=== PATIENT | male | born 1990 | race American Indian/Alaskan Native ===

== ENCOUNTER 2019-01-07 18:10 | Observation (INO) | payer OTHER ==
[2019-01-07] MEDS ORDERED: Sodium Chloride 0.9% 1,000 ML IV STA ×3 (18:26→22:28)
[2019-01-07 18:56] LABS: URINE BACTERIA RARE (<OCC)
--- NOTE | 2019-01-07 18:58 | ED PDOC ---
History of Present Illness History of Present Illness: 28 year old male with no significant medical history presents to the ED for evaluation of intermittent fever, sore throat, swollen glands, weakness and chills since September. Patient reports that he has not used the bathroom in 5 days. In August, he had a sore throat and occasionally produced blood in his mucus. Patient states that the last time he had blood drawn was 2016 and at that time all tests, including for HIV, were negative. Patient is originally from the [facility] and now works as an route contractor. Denies sick contacts and recent travel out of the country. PMD: none provided HPI: Influenza Time Seen by Provider: 01/07/19 18:25 Chief Complaint: ENT Problem Chief Complaint (Provider): ENT Problem History Per: Patient Exam Limitations: no limitations Have you had recent travel within the past 21 days to any of: No Onset/Duration Of Symptoms: Intermittent Episodes (since September) Symptoms include: fever, sore throat, cough, other (weakness and chills) Sick Contacts (Context): None Past Medical History Reviewed: Historical Data, Nursing Documentation, Vital Signs Vital Signs: Last Vital Signs Temp 102.7 F H 01/07/19 18:10 Pulse 100 H 01/07/19 18:10 Resp 16 01/07/19 18:10 BP 122/67 01/07/19 18:10 Pulse Ox 100 01/07/19 18:10 Primary Care Provider: FAMILY PROVIDER,NO - Medical History PMH: No Chronic Diseases - Surgical History Surgical History: No Surg Hx - Family History Family History: States: Unknown Family Hx - Allergies Allergies/Adverse Reactions: Allergies Allergy/AdvReac Type Severity Reaction Status Date / Time No Known Allergies Allergy Verified 01/07/19 18:15 Review of Systems ROS Statement: Except As Marked, All Systems Reviewed And Found Negative Constitutional: Positive for: Fever, Chills, Weakness ENT: Positive for: Throat Pain, Throat Swelling (swollen glands) Respiratory: Positive for: Cough Physical Exam - Reviewed Nursing Documentation Reviewed: Yes Vital Signs Reviewed: Yes - Physical Exam Appears: Positive for: Uncomfortable (patient is shaking and appears dehydrated) Head Exam: Positive for: ATRAUMATIC, NORMAL INSPECTION, NORMOCEPHALIC Skin: Positive for: Warm, Dry Eye Exam: Positive for: EOMI, Normal appearance, PERRL ENT: Positive for: Tonsillar Exudate (bilateral), Tonsillar Swelling (bilate ral), Other (uvula midline) Neck: Positive for: Normal, Painless ROM, Supple Cardiovascular/Chest: Positive for: Tachycardia (with regular rhythm). Negative for: Murmur Respiratory: Positive for: Normal Breath Sounds, Other (tachypneic). Negative for: Wheezing, Respiratory Distress Gastrointestinal/Abdominal: Positive for: Normal Exam, Soft. Negative for: Tenderness Extremity: Positive for: Normal ROM. Negative for: Deformity Neurological/Psych: Positive for: Awake, Alert, Normal Tone, Oriented (x 3). Negative for: Motor/Sensory Deficits Medical Decision Making Medical Decision Makin:25 MDM: fever with lymphadenopathy and cough; rule out TB based on birthplace of [facility] Patient agrees to HIV exam Will also test for mono due to fever and lymphadenitis Basic labs, IV fluids and likely hospitalization. 22:25 Results are negative for mono, strep, influenza and HIV. Scribe Attestation: Documented by Palak Jhaveri, acting as a scribe for Irma Gordon MD. Provider Scribe Attestation: All medical record entries made by the Scribe were at my direction and personally dictated by me. I have reviewed the chart and agree that the record accurately reflects my personal performance of the history, physical exam, medical decision making, and the department course for this patient. I have also personally directed, reviewed, and agree with the discharge instructions and disposition. EXAM: CT Neck with Intravenous Contrast. CLINICAL HISTORY: LEFT SIDED ABCESS TECHNIQUE: Axial computed tomography images of the neck with intravenous contrast. Sagittal and coronal reformatted images were generated. 306.72 mGy-cm CONTRAST: With; [id number] 90ML COMPARISON: None provided. FINDINGS: PHARYNX: Nasopharynx appears symmetric. There is prominence of the tonsillar regions bilaterally, left slightly more than right. There is some vague hypodensity in the left tonsillar region without a definite discrete abscess identified. This may represent tonsillitis. Consider short-term followup after appropriate antimicrobial therapy. LARYNX: The pre glottic, glottic and subglottic regions appear symmetric. No thickening of the epiglottis. RETROPHARYNGEAL SPACE: The retropharyngeal soft tissues appear within normal limits. SALIVARY GLANDS: No salivary gland abnormality evident. Unremarkable appearance of the parotid, submandibular, and sublingual glands. LYMPH NODES: There is left greater than right neck lymphadenopathy particularly near the level of the submandibular glands in the anterior cervical chains. THYROID: Unremarkable appearance of the thyroid. No thyroid nodule seen. BONES: No acute osseous abnormality. No aggressive appearing osseous lesion. IMPRESSION: Tonsillitis, left greater than right. Associated left greater than right lymphadenopathy. Consider follow up imaging after antimicrobial therapy to ensure resolution and exclude underlying lesions. No definite abscess identified. Electronically signed on January 07, 2019 11:41:19 PM EDT by: Doni Ayala M.D., Certified by [facility], Diagnostic Radiology Time: 2347 -- Patient with tonsilitis (left > right). Patient remains febrile and tachycardic at 101. Patient to be admitted under the hospitalist's service for tonsilitis/sepsis. Scribe Attestation: Documented by Mainor Alvarenga, acting as a scribe for Irma Gordon MD. Provider Scribe Attestation: All medical record entries made by the Scribe were at my direction and personally dictated by me. I have reviewed the chart and agree that the record accurately reflects my personal performance of the history, physical exam, medical decision making, and the department course for this patient. I have also personally directed, reviewed, and agree with the discharge instructions and disposition. - Laboratory Results Result Diagrams: 01/07/19 19:04 01/07/19 19:04 - ECG O2 Sat by Pulse Oximetry: 100 (RA) Pulse Ox Interpretation: Normal Disposition - Clinical Impression Clinical Impression: Tonsillitis, Sepsis - Patient ED Disposition Is Patient to be Admitted: Yes Counseled Patient/Family Regarding: Studies Performed, Diagnosis - Disposition Disposition Time: 23:48 Condition: FAIR Forms: [employer] (Azeri)
[2019-01-07 19:00] LABS: URINE BILIRUBIN NEGATIVE (NEGATIVE); URINE BLOOD NEGATIVE (NEGATIVE); URINE CLARITY CLEAR (Clear); URINE COLOR YELLOW (YELLOW); URINE GLUCOSE (UA) NEGATIVE (NEGATIVE); URINE PROTEIN 30 mg/dL (NEGATIVE)
[2019-01-07 19:01] LABS: URINE LEUKOCYTE ESTERASE NEGATIVE Leu/uL (Negative); URINE UROBILINOGEN 0.2-1.0 mg/dL (0.2-1.0)
[2019-01-07 19:17] LABS: BASO % 0.4 % (0.0-2.0); HEMOGLOBIN 12.4 g/dL (12.0-18.0); LYMPH # 0.5 K/uL (1.0-4.3); LYMPH % 5.6 % (20.0-40.0); MEAN CORPUSCULAR HEMOGLOBIN 25.6 pg (27.0-31.0); MEAN CORPUSCULAR HGB CONC 33.2 g/dL (33.0-37.0); MEAN PLATELET VOLUME 9.9 fl (7.2-11.7); MONO # 0.8 K/uL (0.0-0.8); NEUT # 8.3 K/uL (1.8-7.0); PLATELET COUNT 164 K/uL (130-400); RBC 4.84 Mil/uL (4.40-5.90); RED CELL DISTRIBUTION WIDTH 14.4 % (11.5-14.5); WHITE BLOOD COUNT 9.6 K/uL (4.8-10.8)
[2019-01-07 19:18] LABS: VENOUS BLOOD GAS PCO2 39 mmHg (40-60); VENOUS BLOOD GAS PO2 29 mm/Hg (30-55); VENOUS BLOOD PH 7.45 (7.32-7.43)
[2019-01-07 19:19] LABS: BLOOD UREA NITROGEN 14 mg/dl (9-20); CALCIUM 9.2 mg/dL (8.4-10.2); GFR NON-AFRICAN AMERICAN > 60
[2019-01-07 20:12] LABS: BANDS 7 % (0-2); LYMPHOCYTE 3 % (20-50); MONOCYTE 7 % (0-10); NEUTROPHIL 83 % (42-75); PLATELET ESTIMATE NORMAL (NORMAL); TOTAL CELLS COUNTED 100
[2019-01-07] MEDS ORDERED: Iohexol 300 100 ML IJ ONE (22:31)
[2019-01-07] MEDS ORDERED: Sodium Chloride 0.9% 50 ML IV ONE (22:32)
--- NOTE | 2019-01-08 00:21 | CP.PCM.HP ---
History of Present Illness - History of Present Illness History of Present Illness: CC: throat pain HPI: 28 YO Male with recurrent throat infections presents to the ED from urgent care for throat pain and fever. Patient states that the throat pain started 1 week ago, and worsened in the past two days, additionally he started getting on/off fevers in the past three days with chills. He has not been eating well in the last 2 days due to increase throat pain. Today he went to urgent care where he was found to have fever of 102.3, and fever returned within an hr of Tylenol and started having chills, which causes them to sent patient to ER. No sick contacts, no recent travel out of the country (2011 last travel) and originally born in [facility]. Of note, patient states that he has been having cough and on/off throat pain since Aug, no fevers, night sweats, weight changes or sick contacts. PMHx: throat infection SurgHx: denies SHx: sexually active with females, uses condom most of the time, occasional sm oking and ETOH and denies illicit drug use. 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 absent: Night Sweats - EENT Nose/Mouth/Throat: Post Nasal Drip. absent: Nasal Congestion, Nasal Discharge, Nose Pain - Cardiovascular Cardiovascular: absent: Chest Pain, Dyspnea, Palpitations - Respiratory Respiratory: absent: Cough, Dyspnea, Excessive Mucous Production - Gastrointestinal Gastrointestinal: absent: Abdominal Pain, Nausea, Vomiting Past Patient History - Past Social History Smoking Status: Light Smoker < 10 Cigarettes Daily Alcohol: Social Drugs: Denies - PSYCHIATRIC Hx Substance Use: No Meds Allergies/Adverse Reactions: Allergies Allergy/AdvReac Type Severity Reaction Status Date / Time No Known Allergies Allergy Verified 01/07/19 18:15 Physical Exam - Constitutional Appears: No Acute Distress - Head Exam Head Exam: NORMAL INSPECTION - Eye Exam Eye Exam: EOMI, Normal appearance - ENT Exam ENT Exam: Mucous Membranes Moist Additional comments: tonsilar edema, erythema and exudates with ulceration noted b/l tenderness to palpation of the submendibular LN and anterior cervical LN No drooling or hoarseness - Neck Exam Neck exam: Positive for: Full Rom, Lymphadenopathy, Tenderness - Respiratory Exam Respiratory Exam: Clear to Auscultation Bilateral, NORMAL BREATHING PATTERN. absent: Wheezes - Cardiovascular Exam Cardiovascular Exam: REGULAR RHYTHM, +S1, +S2 - GI/Abdominal Exam GI & Abdominal Exam: Normal Bowel Sounds, Soft. absent: Tenderness - Extremities Exam Extremities exam: Positive for: normal inspection - Back Exam Back exam: NORMAL INSPECTION - Neurological Exam Neurological exam: Alert, Oriented x3 - Skin Skin Exam: Normal Color Additional comments: multiple tattoo throughout the arms b/l Results - Vital Signs Recent Vital Signs: Last Vital Signs Temp 100.7 F H 01/07/19 23:52 Pulse 94 H 01/07/19 23:52 Resp 18 01/07/19 23:52 BP 123/58 L 01/07/19 23:52 Pulse Ox 99 01/07/19 23:52 - Labs Result Diagrams: 01/07/19 19:04 01/07/19 19:04 Labs: Laboratory Results - last 24 hr 01/07/19 01/07/19 01/07/19 18:45 18:45 18:45 WBC RBC Hgb Hct MCV MCH MCHC RDW Plt Count MPV Neut % (Auto) Lymph % (Auto) Beauregard % (Auto) Eos % (Auto) Baso % (Auto) Neut # (Auto) Lymph # (Auto) Beauregard # (Auto) Eos # (Auto) Baso # (Auto) Neutrophils % (Manual) Band Neutrophils % Lymphocytes % (Manual) Monocytes % (Manual) Platelet Estimate pO2 VBG pH VBG pCO2 VBG HCO3 VBG Total CO2 VBG O2 Sat (Calc) VBG Base Excess VBG Potassium Glucose Lactate FiO2 Sodium Potassium Chloride Carbon Dioxide Anion Gap BUN Creatinine Est GFR ( Amer) Est GFR (Non-Af Amer) Random Glucose Calcium Venous Blood Potassium Urine Color Yellow Urine Clarity Clear Urine pH 6.0 Ur Specific Magnolia 1.020 Urine Protein 30 Urine Glucose (UA) Negative Urine Ketones Trace Urine Blood Negative Urine Nitrate Negative Urine Bilirubin Negative Urine Urobilinogen 0.2-1.0 Ur Leukocyte Esterase Negative Urine RBC (Auto) 3 Urine Microscopic WBC 2 Urine Bacteria Rare HIV-1 Ab Rapid Screen Infectious Beauregard Assay Influenza Typ A,B (EIA) Negative for flu a/b Grp A Beta Strep Ag Negative 01/07/19 01/07/19 01/07/19 19:04 19:04 19:04 WBC 9.6 RBC 4.84 Hgb 12.4 Hct 37.3 MCV 77.0 L MCH 25.6 L MCHC 33.2 RDW 14.4 Plt Count 164 MPV 9.9 Neut % (Auto) 86.0 H Lymph % (Auto) 5.6 L Beauregard % (Auto) 8.0 Eos % (Auto) 0.0 Baso % (Auto) 0.4 Neut # (Auto) 8.3 H Lymph # (Auto) 0.5 L Beauregard # (Auto) 0.8 Eos # (Auto) 0.0 Baso # (Auto) 0.0 Neutrophils % (Manual) 83 H Band Neutrophils % 7 H Lymphocytes % (Manual) 3 L Monocytes % (Manual) 7 Platelet Estimate Normal pO2 VBG pH VBG pCO2 VBG HCO3 VBG Total CO2 VBG O2 Sat (Calc) VBG Base Excess VBG Potassium Glucose Lactate FiO2 Sodium 134 Potassium 3.6 Chloride 98 Carbon Dioxide 24 Anion Gap 16 BUN 14 Creatinine 0.9 Est GFR ( Amer) > 60 Est GFR (Non-Af Amer) > 60 Random Glucose 116 H Calcium 9.2 Venous Blood Potassium Urine Color Urine Clarity Urine pH Ur Specific Magnolia Urine Protein Urine Glucose (UA) Urine Ketones Urine Blood Urine Nitrate Urine Bilirubin Urine Urobilinogen Ur Leukocyte Esterase Urine RBC (Auto) Urine Microscopic WBC Urine Bacteria HIV-1 Ab Rapid Screen Infectious Beauregard Assay Negative Influenza Typ A,B (EIA) Grp A Beta Strep Ag 01/07/19 01/07/19 19:10 19:48 WBC RBC Hgb Hct MCV MCH MCHC RDW Plt Count MPV Neut % (Auto) Lymph % (Auto) Beauregard % (Auto) Eos % (Auto) Baso % (Auto) Neut # (Auto) Lymph # (Auto) Beauregard # (Auto) Eos # (Auto) Baso # (Auto) Neutrophils % (Manual) Band Neutrophils % Lymphocytes % (Manual) Monocytes % (Manual) Platelet Estimate pO2 29 L VBG pH 7.45 H VBG pCO2 39 L VBG HCO3 26.2 VBG Total CO2 28.3 H VBG O2 Sat (Calc) 61.6 VBG Base Excess 3.0 H VBG Potassium 3.6 Glucose 121 H Lactate 1.7 FiO2 21.0 Sodium 133.0 Potassium Chloride 102.0 Carbon Dioxide Anion Gap BUN Creatinine Est GFR ( Amer) Est GFR (Non-Af Amer) Random Glucose Calcium Venous Blood Potassium 3.6 Urine Color Urine Clarity Urine pH Ur Specific Magnolia Urine Protein Urine Glucose (UA) Urine Ketones Urine Blood Urine Nitrate Urine Bilirubin Urine Urobilinogen Ur Leukocyte Esterase Urine RBC (Auto) Urine Microscopic WBC Urine Bacteria HIV-1 Ab Rapid Screen Non reactive Infectious Beauregard Assay Influenza Typ A,B (EIA) Grp A Beta Strep Ag Assessment & Plan - Assessment and Plan (Free Text) Assessment: Assessment/Plan: 28 YO Male with PMHx of recurrent throat infections is admitted for tonsillitis and fever. Tonsillitis w/ lymphadenopathy. -acute -CT neck; Tonsillitis, left greater than right. Associated left greater than right lymphadenopathy. Consider follow up imaging after antimicrobial therapy to ensure resolution and exclude underlying lesions. No definite abscess identified. -flu, Beauregard, HIV and Step B neg -c/w with IV meds -NPO for now -IV fluids, pain management -ENT consulted; follow up recs for recurrent tonsillitis Sepsis -fever, HR and likely source -left shift with bandemia -normal lactic acid -bcx and ucx pending -follow up AM labs and procal level -IV fluids, IV abx and pain management DVT prolx -Lovenox SC
[2019-01-08] MEDS: Potassium Chl 20 mEq in D5-NS 1,000 ML IV SCH ×3 (01:15→21:46)
[2019-01-08 06:19] LABS: BASO % 0.2 % (0.0-2.0); HEMOGLOBIN 11.3 g/dL (12.0-18.0); LYMPH # 0.8 K/uL (1.0-4.3); LYMPH % 8.8 % (20.0-40.0); MEAN CELL VOLUME 76.7 fl (80.0-94.0); MEAN CORPUSCULAR HEMOGLOBIN 25.3 pg (27.0-31.0); MEAN PLATELET VOLUME 10.2 fl (7.2-11.7); MONO # 0.8 K/uL (0.0-0.8); MONO % 9.4 % (0.0-10.0); NEUT # 7.2 K/uL (1.8-7.0); NEUT % 81.6 % (50.0-75.0); RBC 4.49 Mil/uL (4.40-5.90); RED CELL DISTRIBUTION WIDTH 14.5 % (11.5-14.5); WHITE BLOOD COUNT 8.8 K/uL (4.8-10.8)
--- NOTE | 2019-01-08 08:52 | CT ---
Date of service: 01/07/2019 PROCEDURE: CT NECK WITH CONTRAST HISTORY: left sided abscess COMPARISON: None available. TECHNIQUE: CT of the neck with intravenous contrast. Coronal and sagittal reformats generated. Intravenous contrast dose: 90 mL of Omnipaque 300 Radiation dose: Total exam DLP = 306.72 mGy-cm. This CT exam was performed using one or more of the following dose reduction techniques: Automated exposure control, adjustment of the mA and/or kV according to patient size, and/or use of iterative reconstruction technique. FINDINGS: NASOPHARYNX: The nasopharynx proper appears unremarkable at its junction with the oropharynx are as noted below. There is however basement of the left fossa of Rosenmuller SUPRAHYOID NECK: The oropharynx shows circumferential tonsillar soft tissue prominence with areas of relative hypodensity mainly in the left tonsillar pillars focal tonsillitis here with possible very early tonsillar abscess formation is a consideration. However this no thick walled abscess wall identified. A prominent focal tonsillitis is favored. At the pre epiglottic space there is hyperdensity inferred as enhancement along with a microlobulated contour of soft tissue fullness here. This encroaches on the vallecula. And this hyperdensity and microlobulated border the pre epiglottic space in the vallecular region also is in close proximity with the most inferior aspect of the tongue base. There may be some secretions here as well. The oral cavity proper appears unremarkable otherwise. There is slight flattening of the thin left parapharyngeal fat plane on the asymmetrically prominent left tonsillar soft tissue fullness. No other additional parapharyngeal space pathology noted. The retropharyngeal space. Appears unremarkable. INFRAHYOID NECK: Unremarkable larynx,. There might be asymmetrical thickening of the left aryepiglottic folds. Hypopharynx, and supraglottic space. Vocal cords otherwise intact. MASS: None. GLANDS: Parotid and submandibular glands unremarkable. Normal size thyroid gland, without nodule. LYMPH NODES: A few shotty cervical lymph nodes are present. No necrotic appearing lymph nodes are seen at the level of the tonsillar fullness and inferred left tonsillitis focality. On axial series 2, image 71, and asymmetrical mildly prominent lymph node noted-a left supraclavicular lymph node measuring 12.1 x 0.7 by 1.1 cm in size is noted. The possibility of a left sentinel/Virchow lymph node to be considered. This can portend an intra-abdominal malignancy. Follow-up is recommended. CERVICAL SPINE: No fracture or focal lesion. C5 spondylosis noted. VASCULAR STRUCTURES: Unremarkable. OTHER FINDINGS: None. IMPRESSION: Findings compatible with a tonsillitis left side greater than right. No thick-walled abscess seen. A developing thin walled left tonsillar abscess however is not excluded. The lymph nodes at this level are not particularly hyperplastic or necrotic appearing. These cysts circumferential lymphatic soft tissues do encroach slightly on the airway. Associated microlobulated probably enhancing pre epiglottic space soft tissues-inflammatory and/or infectious basis is compatible with this. There is some encroachment on the vallecula here. These findings were referenced on the prior [facility] report. Left supraclavicular The possibility of a left sentinel/Virchow lymph node to be considered. This can portend an intra-abdominal malignancy. Follow-up is recommended. This finding was not referenced on the prior [facility] rad report. Comments: Study marked for PA review .
[2019-01-08] MEDS: Enoxaparin 40 mg Syringe SC SCH ×2 (09:25→09:29)
[2019-01-08] MEDS ORDERED: Lidocaine/Epi 1% 1:100000 20 ML IJ ONE (09:37)
[2019-01-08] MEDS ORDERED: Dexamethasone 10 MG in Sodium Chloride 0.9% 50 ML IVPB ONE (09:53)
--- NOTE | 2019-01-08 10:47 | RAD ---
Date of service: 01/07/2019 HISTORY: COMPARISON: No comparison available. TECHNIQUE: 2 views obtained. FINDINGS: This soft tissue fullness pre vertebral to C4-5 level estimated at the hypopharynx pharynx level is displaced of the air column at this level. No gross compression appreciated on these films. No gross radiopaque foreign body. IMPRESSION: Soft tissue fullness [id number] hypo pharyngeal level-to assess for any possible abscess or additional airway compromise consider CT of the neck.
--- NOTE | 2019-01-08 20:52 | OP ---
PROCEDURE DATE: 01/07/2019 PREOPERATIVE DIAGNOSIS: Possible peritonsillar abscess, left. POSTOPERATIVE DIAGNOSIS: Possible peritonsillar abscess,left. PROCEDURE: Exploration of left peritonsillar area. SIGNIFICANT FINDINGS: No pus noted. DESCRIPTION OF PROCEDURE: The patient was placed in a seated position. The left peritonsillar area was injected with lidocaine with epinephrine. Incision was made in the left peritonsillar area. were done in the soft palate and left peritonsillar area. No pus was noted. The bleeding was controlled with time. The patient tolerated the procedure well. Jae Dye MD
[2019-01-09 06:02] LABS: BASO % 0.2 % (0.0-2.0); HEMOGLOBIN 12.4 g/dL (12.0-18.0); LYMPH # 0.7 K/uL (1.0-4.3); LYMPH % 8.5 % (20.0-40.0); MEAN CELL VOLUME 78.1 fl (80.0-94.0); MEAN CORPUSCULAR HEMOGLOBIN 25.6 pg (27.0-31.0); MEAN CORPUSCULAR HGB CONC 32.7 g/dL (33.0-37.0); MONO # 0.4 K/uL (0.0-0.8); MONO % 4.6 % (0.0-10.0); NEUT # 7.5 K/uL (1.8-7.0); NEUT % 86.7 % (50.0-75.0); RBC 4.87 Mil/uL (4.40-5.90); RED CELL DISTRIBUTION WIDTH 14.6 % (11.5-14.5); WHITE BLOOD COUNT 8.7 K/uL (4.8-10.8)
[2019-01-09 06:29] LABS: ALB/GLOB RATIO 1.3 (1.0-2.1); ALBUMIN 4.1 g/dL (3.5-5.0); ALT/SGPT 25 U/L (21-72); AST/SGOT 24 U/L (17-59); BLOOD UREA NITROGEN 8 mg/dl (9-20); CALCIUM 9.3 mg/dL (8.4-10.2); GFR NON-AFRICAN AMERICAN > 60
--- NOTE | 2019-01-09 09:47 | CP.PCM.DIS ---
<Brennan Downey - Last Filed: 01/09/19 13:51> Provider - Provider Date of Admission: 01/07/19 23:44 Attending physician: Allison Cash MD Consults: 01/08/19 01:35 Social Work Referral Routine Comment: no insurance Physician Instructions: Reason For Exam: lives alone 01/08/19 07:00 Otolaryngology Consult Routine Consulting Provider: Jae Dye Consulting Physician: Jae Dye Reason for Consult: recurrent tonsilitis Time Spent in preparation of Discharge (in minutes): 20 Diagnosis - Discharge Diagnosis (1) Sepsis Status: Ruled-out (2) Tonsillitis Status: Acute Hospital Course - Lab Results Lab Results: Micro Results 01/07/19 18:30 Blood-Venous Blood Culture - Preliminary NO GROWTH AFTER 24 HOURS Most Recent Lab Values WBC 8.7 K/uL (4.8-10.8) 01/09/19 05:51 RBC 4.87 Mil/uL (4.40-5.90) 01/09/19 05:51 Hgb 12.4 g/dL (12.0-18.0) 01/09/19 05:51 Hct 38.0 % (35.0-51.0) 01/09/19 05:51 MCV 78.1 fl (80.0-94.0) L 01/09/19 05:51 MCH 25.6 pg (27.0-31.0) L 01/09/19 05:51 MCHC 32.7 g/dL (33.0-37.0) L 01/09/19 05:51 RDW 14.6 % (11.5-14.5) H 01/09/19 05:51 Plt Count 160 K/uL (130-400) 01/09/19 05:51 MPV 10.0 fl (7.2-11.7) 01/09/19 05:51 Neut % (Auto) 86.7 % (50.0-75.0) H 01/09/19 05:51 Lymph % (Auto) 8.5 % (20.0-40.0) L 01/09/19 05:51 Dubois % (Auto) 4.6 % (0.0-10.0) 01/09/19 05:51 Eos % (Auto) 0.0 % (0.0-4.0) 01/09/19 05:51 Baso % (Auto) 0.2 % (0.0-2.0) 01/09/19 05:51 Neut # (Auto) 7.5 K/uL (1.8-7.0) H 01/09/19 05:51 Lymph # (Auto) 0.7 K/uL (1.0-4.3) L 01/09/19 05:51 Dubois # (Auto) 0.4 K/uL (0.0-0.8) 01/09/19 05:51 Eos # (Auto) 0.0 K/uL (0.0-0.7) 01/09/19 05:51 Baso # (Auto) 0.0 K/uL (0.0-0.2) 01/09/19 05:51 Neutrophils % (Manual) 83 % (42-75) H 01/07/19 19:04 Band Neutrophils % 7 % (0-2) H 01/07/19 19:04 Lymphocytes % (Manual) 3 % (20-50) L 01/07/19 19:04 Monocytes % (Manual) 7 % (0-10) 01/07/19 19:04 Platelet Estimate Normal (NORMAL) 01/07/19 19:04 pO2 29 mm/Hg (30-55) L 01/07/19 19:10 VBG pH 7.45 (7.32-7.43) H 01/07/19 19:10 VBG pCO2 39 mmHg (40-60) L 01/07/19 19:10 VBG HCO3 26.2 mmol/L 01/07/19 19:10 VBG Total CO2 28.3 mmol/L (22-28) H 01/07/19 19:10 VBG O2 Sat (Calc) 61.6 % (40-65) 01/07/19 19:10 VBG Base Excess 3.0 mmol/L (0.0-2.0) H 01/07/19 19:10 VBG Potassium 3.6 mmol/L (3.6-5.2) 01/07/19 19:10 Sodium 133.0 mmol/L (132-148) 01/07/19 19:10 Chloride 102.0 mmol/L (98-107) 01/07/19 19:10 Glucose 121 mg/dL (75-110) H 01/07/19 19:10 Lactate 1.7 mmol/L (0.7-2.1) 01/07/19 19:10 FiO2 21.0 % 01/07/19 19:10 Sodium 139 mmol/l (132-148) 01/09/19 05:51 Potassium 4.2 MMOL/L (3.6-5.0) 01/09/19 05:51 Chloride 104 mmol/L (98-107) 01/09/19 05:51 Carbon Dioxide 23 mmol/L (22-30) 01/09/19 05:51 Anion Gap 16 (10-20) 01/09/19 05:51 BUN 8 mg/dl (9-20) L 01/09/19 05:51 Creatinine 0.6 mg/dl (0.8-1.5) L 01/09/19 05:51 Est GFR ( Amer) > 60 01/09/19 05:51 Est GFR (Non-Af Amer) > 60 01/09/19 05:51 Random Glucose 142 mg/dL (75-110) H 01/09/19 05:51 Calcium 9.3 mg/dL (8.4-10.2) 01/09/19 05:51 Total Bilirubin 0.5 mg/dl (0.2-1.3) 01/09/19 05:51 AST 24 U/L (17-59) 01/09/19 05:51 ALT 25 U/L (21-72) 01/09/19 05:51 Alkaline Phosphatase 61 U/L (38-126) 01/09/19 05:51 Total Protein 7.3 G/DL (6.3-8.2) 01/09/19 05:51 Albumin 4.1 g/dL (3.5-5.0) 01/09/19 05:51 Globulin 3.3 gm/dL (2.2-3.9) 01/09/19 05:51 Albumin/Globulin Ratio 1.3 (1.0-2.1) 01/09/19 05:51 Procalcitonin 0.20 NG/ML (0.19-0.49) 01/08/19 05:30 Venous Blood Potassium 3.6 mmol/L (3.6-5.2) 01/07/19 19:10 Urine Color Yellow (YELLOW) 01/07/19 18:45 Urine Clarity Clear (Clear) 01/07/19 18:45 Urine pH 6.0 (5.0-8.0) 01/07/19 18:45 Ur Specific Stanfield 1.020 (1.003-1.030) 01/07/19 18:45 Urine Protein 30 mg/dL (NEGATIVE) 01/07/19 18:45 Urine Glucose (UA) Negative mg/dL (NEGATIVE) 01/07/19 18:45 Urine Ketones Trace mg/dL (NEGATIVE) 01/07/19 18:45 Urine Blood Negative (NEGATIVE) 01/07/19 18:45 Urine Nitrate Negative (NEGATIVE) 01/07/19 18:45 Urine Bilirubin Negative (NEGATIVE) 01/07/19 18:45 Urine Urobilinogen 0.2-1.0 mg/dL (0.2-1.0) 01/07/19 18:45 Ur Leukocyte Esterase Negative Howie/uL (Negative) 01/07/19 18:45 Urine RBC (Auto) 3 /hpf (0-3) 01/07/19 18:45 Urine Microscopic WBC 2 /hpf (0-5) 01/07/19 18:45 Urine Bacteria Rare (<OCC) 01/07/19 18:45 HIV-1 Ab Rapid Screen Non reactive (NON REAC) 01/07/19 19:48 Infectious Dubois Assay Negative (NEGATIVE) 01/07/19 19:04 Influenza Typ A,B (EIA) Negative for flu a/b (NEGATIVE) 01/07/19 18:45 Grp A Beta Strep Ag Negative (NEGATIVE) 01/07/19 18:45 - Hospital Course Hospital Course: 28 YO Male with PMHx of recurrent throat infections is admitted for tonsillitis and fever. Upon admission Dr. Luna was consulted, I&D performed at bedside no pus was drained. Patient was tested FLu,Dubois, HIV, Step B neg. Patient was started on Unasyn q6h for 2 days. Patient seen and examined at bedside. Patient no acute distress overnight. Patient symptoms improved, Afebrile, no white blood cell count. Patient is able to eat. Will discharge patient with Augmentin bid for 7 days. Patient should follow up with PCP in 3-[address] neck; Tonsillitis, left greater than right. Associated left greater than right lymphadenopathy. Consider follow up imaging after antimicrobial therapy to ensure resolution and exclude underlying lesions. No definite abscess identified. Discharge Exam - Head Exam Head Exam: NORMAL INSPECTION - Eye Exam Eye Exam: EOMI, Normal appearance, PERRL Pupil Exam: NORMAL ACCOMODATION, PERRL - ENT Exam Additional comments: White discharge noted b/l tonsil - Respiratory Exam Respiratory Exam: Clear to PA & Lateral, NORMAL BREATHING PATTERN, UNREMARKABLE - Cardiovascular Exam Cardiovascular Exam: REGULAR RHYTHM, +S1, +S2 - GI/Abdominal Exam GI & Abdominal Exam: Normal Bowel Sounds, Unremarkable - Neurological Exam Neurological exam: Alert, CN II-XII Intact, Normal Gait, Oriented x3 - Psychiatric Exam Psychiatric exam: Normal Affect, Normal Mood - Skin Skin Exam: Dry, Intact, Normal Color, Warm Discharge Plan - Discharge Medications Prescriptions: Amoxicillin/Clavulanate [Augmentin 875 MG-125 MG] 1 tab PO BID #14 tab - Follow Up Plan Condition: FAIR Disposition: HOME/ ROUTINE Instructions: Abscess Incision and Drainage (DC), Sepsis (DC), Sepsis (GEN) Additional Instructions: Tonsillitis Tonsillitis is an infection of the throat that causes the tonsils to become red, tender, and swollen. Tonsils are tissues in the back of your throat. Each tonsil has crevices (crypts). Tonsils normally work to protect the body from infection. What Are The Causes? Sudden (acute) tonsillitis may be caused by a virus or bacteria, including str eptococcal bacteria. Long-lasting (chronic) tonsillitis occurs when the crypts of the tonsils become filled with pieces of food and bacteria, which makes it easy for the tonsils to become repeatedly infected. Tonsillitis can be spread from person to person (is contagious). It may be spread by inhaling droplets that are released with coughing or sneezing. You may also come into contact with viruses or bacteria on surfaces, such as cups or utensils. What Are The Signs Or Symptoms? Symptoms of this condition include: A sore throat. This may include trouble swallowing. White patches on the tonsils. Swollen tonsils. Fever. Headache. Tiredness. Loss of appetite. Snoring during sleep when you did not snore before. Small, foul-smelling, yellowish-white pieces of material (tonsilloliths) that you occasionally cough up or spit out. These can cause you to have bad breath. How Is This Diagnosed? This condition is diagnosed with a physical exam. Diagnosis can be confirmed with the results of lab tests, including a throat culture. How Is This Treated? Treatment for this condition depends on the cause, but usually focuses on treating the symptoms associated with it. Treatment may include: Medicines to relieve pain and manage fever. Steroid medicines to reduce swelling. Antibiotic medicines if the condition is caused by bacteria. If attacks of tonsillitis are severe and frequent, your health care provider may recommend surgery to remove the tonsils (tonsillectomy). Follow These Instructions At Home: Medicines Take [id number] and prescription medicines only as told by your health care provider. If you were prescribed an antibiotic medicine, take it as told by your health care provider. Do not stop taking the antibiotic even if you start to feel better. Eating and drinking Drink enough fluid to keep your urine clear or pale yellow. While your throat is sore, eat soft or liquid foods, such as sherbet, soups, or instant breakfast drinks. Drink warm liquids. Eat frozen ice pops. General instructions Rest as much as possible and get plenty of sleep. Gargle with a salt-water mixture 34 times a day or as needed. To make a salt- water mixture, completely dissolve -1 tsp of salt in 1 cup of warm water. Wash your hands regularly with soap and water. If soap and water are not available, use hand pastrycook's assistant. Do not share cups, bottles, or other utensils until your symptoms have gone away. Do not smoke. This can help your symptoms and prevent the infection from coming back. If you need help quitting, ask your health care provider. Keep all follow-up visits as told by your health care provider. This is important. Contact A Health Care Provider If: You notice large, tender lumps in your neck that were not there before. You have a fever that does not go away after 23 days. You develop a rash. You cough up a green, yellow-brown, or bloody substance. You cannot swallow liquids or food for 24 hours. Only one of your tonsils is swollen. Get Help Right Away If: You develop any new symptoms, such as vomiting, severe headache, stiff neck, chest pain, trouble breathing, or trouble swallowing. You have severe throat pain along with drooling or voice changes. You have severe pain that is not controlled with medicines. You cannot fully open your mouth. You develop redness, swelling, or severe pain anywhere in your neck. Summary Tonsillitis is an infection of the throat that causes the tonsils to become red, tender, and swollen. Tonsillitis may be caused by a virus or bacteria. Rest as much as possible. Get plenty of sleep. Referrals: [facility] [Outside] Jae Dye MD [Staff Provider] - <Abigail GuzmánMeronwalker Joy - Last Filed: 01/09/19 17:02> Provider - Provider Date of Admission: 01/07/19 23:44 Attending physician: Allison Cash MD Consults: 01/08/19 01:35 Social Work Referral Routine Comment: no insurance Physician Instructions: Reason For Exam: lives alone 01/08/19 07:00 Otolaryngology Consult Routine Consulting Provider: Jae Dye Consulting Physician: Jae Dye Reason for Consult: recurrent tonsilitis Hospital Course - Lab Results Lab Results: Micro Results 01/07/19 18:30 Blood-Venous Blood Culture - Preliminary NO GROWTH AFTER 24 HOURS Most Recent Lab Values WBC 8.7 K/uL (4.8-10.8) 01/09/19 05:51 RBC 4.87 Mil/uL (4.40-5.90) 01/09/19 05:51 Hgb 12.4 g/dL (12.0-18.0) 01/09/19 05:51 Hct 38.0 % (35.0-51.0) 01/09/19 05:51 MCV 78.1 fl (80.0-94.0) L 01/09/19 05:51 MCH 25.6 pg (27.0-31.0) L 01/09/19 05:51 MCHC 32.7 g/dL (33.0-37.0) L 01/09/19 05:51 RDW 14.6 % (11.5-14.5) H 01/09/19 05:51 Plt Count 160 K/uL (130-400) 01/09/19 05:51 MPV 10.0 fl (7.2-11.7) 01/09/19 05:51 Neut % (Auto) 86.7 % (50.0-75.0) H 01/09/19 05:51 Lymph % (Auto) 8.5 % (20.0-40.0) L 01/09/19 05:51 Dubois % (Auto) 4.6 % (0.0-10.0) 01/09/19 05:51 Eos % (Auto) 0.0 % (0.0-4.0) 01/09/19 05:51 Baso % (Auto) 0.2 % (0.0-2.0) 01/09/19 05:51 Neut # (Auto) 7.5 K/uL (1.8-7.0) H 01/09/19 05:51 Lymph # (Auto) 0.7 K/uL (1.0-4.3) L 01/09/19 05:51 Dubois # (Auto) 0.4 K/uL (0.0-0.8) 01/09/19 05:51 Eos # (Auto) 0.0 K/uL (0.0-0.7) 01/09/19 05:51 Baso # (Auto) 0.0 K/uL (0.0-0.2) 01/09/19 05:51 Neutrophils % (Manual) 83 % (42-75) H 01/07/19 19:04 Band Neutrophils % 7 % (0-2) H 01/07/19 19:04 Lymphocytes % (Manual) 3 % (20-50) L 01/07/19 19:04 Monocytes % (Manual) 7 % (0-10) 01/07/19 19:04 Platelet Estimate Normal (NORMAL) 01/07/19 19:04 pO2 29 mm/Hg (30-55) L 01/07/19 19:10 VBG pH 7.45 (7.32-7.43) H 01/07/19 19:10 VBG pCO2 39 mmHg (40-60) L 01/07/19 19:10 VBG HCO3 26.2 mmol/L 01/07/19 19:10 VBG Total CO2 28.3 mmol/L (22-28) H 01/07/19 19:10 VBG O2 Sat (Calc) 61.6 % (40-65) 01/07/19 19:10 VBG Base Excess 3.0 mmol/L (0.0-2.0) H 01/07/19 19:10 VBG Potassium 3.6 mmol/L (3.6-5.2) 01/07/19 19:10 Sodium 133.0 mmol/L (132-148) 01/07/19 19:10 Chloride 102.0 mmol/L (98-107) 01/07/19 19:10 Glucose 121 mg/dL (75-110) H 01/07/19 19:10 Lactate 1.7 mmol/L (0.7-2.1) 01/07/19 19:10 FiO2 21.0 % 01/07/19 19:10 Sodium 139 mmol/l (132-148) 01/09/19 05:51 Potassium 4.2 MMOL/L (3.6-5.0) 01/09/19 05:51 Chloride 104 mmol/L (98-107) 01/09/19 05:51 Carbon Dioxide 23 mmol/L (22-30) 01/09/19 05:51 Anion Gap 16 (10-20) 01/09/19 05:51 BUN 8 mg/dl (9-20) L 01/09/19 05:51 Creatinine 0.6 mg/dl (0.8-1.5) L 01/09/19 05:51 Est GFR ( Amer) > 60 01/09/19 05:51 Est GFR (Non-Af Amer) > 60 01/09/19 05:51 Random Glucose 142 mg/dL (75-110) H 01/09/19 05:51 Calcium 9.3 mg/dL (8.4-10.2) 01/09/19 05:51 Total Bilirubin 0.5 mg/dl (0.2-1.3) 01/09/19 05:51 AST 24 U/L (17-59) 01/09/19 05:51 ALT 25 U/L (21-72) 01/09/19 05:51 Alkaline Phosphatase 61 U/L (38-126) 01/09/19 05:51 Total Protein 7.3 G/DL (6.3-8.2) 01/09/19 05:51 Albumin 4.1 g/dL (3.5-5.0) 01/09/19 05:51 Globulin 3.3 gm/dL (2.2-3.9) 01/09/19 05:51 Albumin/Globulin Ratio 1.3 (1.0-2.1) 01/09/19 05:51 Procalcitonin 0.20 NG/ML (0.19-0.49) 01/08/19 05:30 Venous Blood Potassium 3.6 mmol/L (3.6-5.2) 01/07/19 19:10 Urine Color Yellow (YELLOW) 01/07/19 18:45 Urine Clarity Clear (Clear) 01/07/19 18:45 Urine pH 6.0 (5.0-8.0) 01/07/19 18:45 Ur Specific Stan[place] 1.020 (1.003-1.030) 01/07/19 18:45 Urine Protein 30 mg/dL (NEGATIVE) 01/07/19 18:45 Urine Glucose (UA) Negative mg/dL (NEGATIVE) 01/07/19 18:45 Urine Ketones Trace mg/dL (NEGATIVE) 01/07/19 18:45 Urine Blood Negative (NEGATIVE) 01/07/19 18:45 Urine Nitrate Negative (NEGATIVE) 01/07/19 18:45 Urine Bilirubin Negative (NEGATIVE) 01/07/19 18:45 Urine Urobilinogen 0.2-1.0 mg/dL (0.2-1.0) 01/07/19 18:45 Ur Leukocyte Esterase Negative Howie/uL (Negative) 01/07/19 18:45 Urine RBC (Auto) 3 /hpf (0-3) 01/07/19 18:45 Urine Microscopic WBC 2 /hpf (0-5) 01/07/19 18:45 Urine Bacteria Rare (<OCC) 01/07/19 18:45 HIV-1 Ab Rapid Screen Non reactive (NON REAC) 01/07/19 19:48 Infectious Dubois Assay Negative (NEGATIVE) 01/07/19 19:04 Influenza Typ A,B (EIA) Negative for flu a/b (NEGATIVE) 01/07/19 18:45 Grp A Beta Strep Ag Negative (NEGATIVE) 01/07/19 18:45 Attending/Attestation - Attestation I have personally seen and examined this patient.: Yes I have fully participated in the care of the patient.: Yes I have reviewed all pertinent clinical information, including history, physical exam and plan: Yes Notes (Text): Exudative Tonsillitis Peritonsillar Abscess ruled out s/p exploration of peritonsillar area ( I&D) done at bedside by Dr Dye Left Supraclavicular Lymphadenopathy seen on CT scan - Pt received IV Unasyn - was also given IV Decadron to decrease swelling of tonsil - pt's symptoms improved - tolerated PO diet - no dysphagia, no dyspnea, saturation normal, no airway compromise -fever resolved - incidental finding of left supraclavicular LN - pt to ff up at the clinic after abx tx completed for f up on resolution, may need rpt CT - will d/c pt home on PO Augmentin
[2019-01-09] MEDS: Enoxaparin 40 mg Syringe SC SCH (09:50)
[2019-01-09 15:52] VITALS: BP 105/60; PULSE 71; RESP 18; TEMP 98.6; O2SAT 96
== END 2019-01-09 19:21 | disposition home or self-care (01) ==
LOC: H.ER 18:10 → H.ERHOLD 23:44 → H.MEDSURG1 01-08 00:48
PROVIDERS: ADMIT Internal Medicine; ATTEND Internal Medicine
DX: J03.90 Acute tonsillitis, unspecified (principal); R59.1 Generalized enlarged lymph nodes; Z72.0 Tobacco use
CPT/HCPCS: 10060; 36415; 70360; 70491; 80048; 80053; 81003; 82803; 84145; 85025; 86308; 86592; 87040; 87070; 87081; 87390; 87430; 87804; 96365; 96366; 96372; 96375; 96376; 99284; G0378; J0295; J1100; J1650; J1885; J2405; J7030; J8540; Q9967